=== PATIENT | male | born 2000 | race Caucasian/White ===

== ENCOUNTER 2023-08-03 21:13 | Emergency (ER) | payer OTHER ==
[~2023-08-03] VITALS: Ht 182.9 cm; Wt 68.0 kg
[2023-08-03 21:13] VITALS: BP 119/77; TEMP 98.1
[2023-08-03] MEDS ORDERED: NYST5ORA PO (23:02)
[2023-08-03 23:44] LABS: APPEARANCE,URINE SLIGHTLY CLOUDY (CLEAR); BILIRUBIN,URINE NEGATIVE (NEGATIVE); BLOOD, URINE NEGATIVE Ery/uL (NEGATIVE); COLOR,URINE YELLOW (YELLOW); KETONES,URINE NEGATIVE (NEGATIVE); LEUKOCYTE ESTERASE ,URINE NEGATIVE (NEGATIVE); NITRITE, URINE NEGATIVE (NEGATIVE); PROTEIN,URINE NEGATIVE (NEGATIVE); UGLUCOSE NEGATIVE (NEGATIVE); UROBILINOGEN,URINE 0.2 EU/dL (0.2)
[2023-08-04] MEDS ORDERED: LIDOCAINE /MPF 1% VIAL 5 ML VIAL ONE (00:06)
[2023-08-04] MEDS ORDERED: AZITHROMYCIN 250 MG TABLET ONE (00:07)
[2023-08-04] MEDS ORDERED: CEFTRIAXONE 1 G VIAL ONE (00:07)
[2023-08-04] MEDS: AZITHROMYCIN 250 MG TABLET PO ONE (00:11)
[2023-08-04] MEDS: CEFTRIAXONE 1 G VIAL IM ONE (00:11)
[2023-08-04 00:29] VITALS: O2SAT 99
[2023-08-05 23:10] LABS: CHLAMYDIA TRACHOMATIS NAA Positive (Negative); NEISSERIA GONORRHOEAE NAA Negative (Negative)
== END 2023-08-04 00:28 | disposition home or self-care (01) ==
LOC: ER 21:18
DX: B37.0 Candidal stomatitis (principal); J02.9 Acute pharyngitis, unspecified; Z20.2 Contact with and (suspected) exposure to infections with a predominantly sexual mode of transmission; Z88.8 Allergy status to other drugs, medicaments and biological substances
CPT/HCPCS: 99283; 81003; 87491; 87591; 96372; J0696; J3490

== ENCOUNTER 2023-08-05 23:10 | Emergency (ER) | payer OTHER ==
[~2023-08-05] VITALS: Ht 182.9 cm; Wt 68.0 kg
[~2023-08-05 23:10] MED LIST: NYST5ORA PO
[2023-08-05 23:47] VITALS: BP 117/81; TEMP 98; O2SAT 100
[2023-08-06] MEDS ORDERED: LORAZEPAM INJ 2 MG/ML VIAL IM ONE
[2023-08-06] MEDS ORDERED: LORAZEPAM INJ 2 MG/ML VIAL ONE (00:02)
[2023-08-06] MEDS ORDERED: LORAZEPAM 1 MG TABLET ONE (00:17)
[2023-08-06] MEDS: LORAZEPAM 1 MG TABLET PO ONE (00:20)
[2023-08-10] MEDS ORDERED: DOXY100C2 PO (08:44)
== END 2023-08-06 01:04 | disposition home or self-care (01) ==
LOC: ER 23:14
DX: F41.9 Anxiety disorder, unspecified (principal); R20.2 Paresthesia of skin; Z88.8 Allergy status to other drugs, medicaments and biological substances
CPT/HCPCS: 99283; J2060